=== PATIENT | female | born 1950 | race African-American/Black ===

== ENCOUNTER → 2016-12-17 | Outpatient (CLI) | payer MEDICARE, OTHER ==
[2014-04-18 11:50] VITALS: BP 154/70
[~2016-12-17] MED LIST: ACET325T9 PO; ASCO10002 PO; ASPI81TA2 PO; BYSTOLIC20 MG PO; CHOL10003 PO; INSU100V13 SQ; LATA2.5D3 OU; METO100T2 PO; METO50TA2 PO; MULT-18 PO; SALM1CAP2 PO; SENN-6 PO; TAPE100T3 PO; VALS80TA3 PO; ZOLP5TAB5 PO
--- NOTE | 2016-12-17 12:32 | RAD ---
DATE: 12/17/2016 EXAM: DIGITAL SCREEN BILAT W/CAD HISTORY: Routine screening COMPARISON: 12/17/2015 This study was interpreted with the benefit of Computerized Aided Detection (CAD). FINDINGS: The fibroglandular pattern in the breasts is heterogeneously dense. No new or enlarging breast densities are seen. Benign type calcifications are present. No suspicious microcalcifications have developed. IMPRESSION: Stable mammograms without evidence of malignancy. BI-RADS CATEGORY: 2 BENIGN FINDING(S) RECOMMENDED FOLLOW-UP: 12M 12 MONTH FOLLOW-UP PQRS compliance statement: Patient information was entered into a reminder system with a target due date for the next mammogram. Mammography is a sensitive method for finding small breast cancers, but it does not detect them all and is not a substitute for careful clinical examination. A negative mammogram does not negate a clinically suspicious finding and should not result in delay in biopsying a clinically suspicious abnormality. "Our facility is accredited by the [employer] Mammography [employer]."
== END | disposition home or self-care (01) ==
LOC: MAMMO 11:52
PROVIDERS: ATTEND Family Medicine
DX: Z12.31 Encounter for screening mammogram for malignant neoplasm of breast (principal)
CPT/HCPCS: G0202; 77067

== ENCOUNTER → 2017-06-16 | Outpatient (CLI) | payer MEDICARE, OTHER ==
[2014-04-18 11:50] VITALS: BP 154/70
[~2017-06-16] MED LIST changes: +ASPI-630 PO; -ASPI81TA2 PO; -TAPE100T3 PO; +TAPE100T7 PO
--- NOTE | 2017-06-16 11:45 | RAD ---
EXAM: Carotid Doppler sonogram. HISTORY: Carotid bruit, hypertension, diabetes. TECHNIQUE: Ventura scale and color Doppler sonographic evaluation of the neck with spectral waveform analysis was performed and static images are submitted for review. FINDINGS: RIGHT: The peak systolic velocity within the common carotid artery is 85 cm/sec. The peak systolic velocity within the internal carotid artery is 60 cm/sec and the end diastolic velocity within the internal carotid artery is 16 cm/sec. The ICA/CCA ratio is 1.27. Grayscale images demonstrate no significant plaquing. LEFT: The peak systolic velocity within the common carotid artery is 73 cm/sec. The peak systolic velocity within the internal carotid artery is 83 cm/sec and the end diastolic velocity within the internal carotid artery is 24 cm/sec. The ICA/CCA ratio is 1.53. Grayscale images demonstrate no significant plaquing. There is antegrade flow within both vertebral arteries. IMPRESSION: 1. No evidence of hemodynamically significant stenosis. PQRS Compliance Statement - Stenosis calculations for CT, MR and conventional angiography are based upon measurement of the distal ICA diameter in accordance with the NASCET methodology. Stenosis calculations for carotid ultrasound studies are derived from validated velocity criteria which are known to correlate with the NASCET methodology.
--- NOTE | 2017-06-16 16:11 | RAD ---
2 views of the Chest 06/16/2017 2:00 AM Indication: HYPERTENSION. BRUIT. DM II. Comparison: Chest radiograph September 04, 2010 Findings: No pneumothorax or pleural effusion is identified. Heart size is normal. Aortic calcification is grossly stable. No new focal infiltrate is identified. No acute osseous changes are seen. Impression: No evidence of acute cardiopulmonary process
--- NOTE | 2017-06-19 12:12 | CARD ---
APPROVED REPORT EXAM: Two-dimensional and M-mode echocardiogram with Doppler and color Doppler. Other Information Quality : Average Rhythm : NSR INDICATION Hypertension/HCVD LV Function:Diastolic 2D DIMENSIONS RVDd2.3 (2.9-3.5cm)Left Atrium(2D)2.9 (1.6-4.0cm) IVSd1.2 (0.7-1.1cm)Aortic Root(2D)2.5 (2.0-3.7cm) LVDd4.1 (3.9-5.9cm)LVOT Diameter2.0 (1.8-2.4cm) PWd1.2 (0.7-1.1cm)LVDs2.3 (2.5-4.0cm) FS (%) 32.9 %SV54.1 ml LVEF(%)64.5 (>50%) Aortic Valve AoV Peak Wu.99.6cm/sAoV VTI21.5cm AO Peak GR.4.0mmHgLVOT Peak Wu.87.4cm/s LVOT VTI 19.49cmAO Mean GR.2mmHg SOLA (VMAX)2.76dq6EIP (VTI)2.82cm2 Mitral Valve MV E Xhxrtqly60.9cm/sMV DECEL ZGVC477up MV A Skgtwgfu08.8cm/sMV ASI51lx E/A Ratio1.2MV A Ejilggpw764kq MVA (PHT)4.16cm2 TDI E/Lateral E'8.0E/Medial E'6.4 Pulmonary Valve PV Peak Kpkfiexb37.3cm/sPV Peak Grad.1mmHg RVOT VTI17.5cm Tricuspid Valve TR P. Ghagafsk279vc/sRAP NDLHUSYZ9kyKa TR Peak Gr.87zbNfLWBW38vhLv Pulmonary Vein S1 Ayhkbfnk54.5cm/sD2 Dhnogebm25.5cm/s LEFT VENTRICLE The left ventricle is normal size. There is borderline concentric left ventricular hypertrophy. Left ventricle systolic function is normal. The Ejection Fraction is 60-65%. There is normal LV segmental wall motion. The left ventricular diastolic function and filling is normal. There is no ventricular s eptal defect visualized. RIGHT VENTRICLE The right ventricle is normal size. The right ventricular systolic function is normal. ATRIA The left atrium size is normal. The right atrium size is normal. The interatrial septum is intact wit h no evidence for an atrial septal defect or patent foramen ovale as noted on 2-D or Doppler imaging. AORTIC VALVE The aortic valve is normal in structure and function. The aortic valve is trileaflet. Doppler and Col or Flow revealed no significant aortic regurgitation. There is no significant aortic valvular stenosi s. MITRAL VALVE The mitral valve is normal in structure and function. There is no mitral valve stenosis. Doppler and Color Flow revealed trace to mild mitral regurgitation. TRICUSPID VALVE The tricuspid valve is normal in structure and function. Doppler and Color Flow revealed mild tricusp id regurgitation. The PA pressure was estimated at 24 mmHg. There is no tricuspid valve stenosis. PULMONIC VALVE The pulmonic valve is not well visualized. Doppler and Color Flow revealed trace pulmonic valvular re gurgitation. There is no pulmonic valvular stenosis. GREAT VESSELS The aortic root is normal in size. Normal pulmonary venous flow (Doppler). The IVC is normal in size and collapses >50% with inspiration. PERICARDIAL EFFUSION There is no evidence of significant pericardial effusion. Critical Notification Critical Value: No <Conclusion> The left ventricle is normal size. There is borderline concentric left ventricular hypertrophy. Left ventricle systolic function is normal. The Ejection Fraction is 60-65%. The left ventricular diastolic function and filling is normal. There is no evidence of significant pericardial effusion. There is no mitral stenosis and a mild mitral regurgitation. Left atrium is of a normal size. There is no aortic stenosis or regurgitation. Right ventricle is of a normal size with normal systolic function. There is a mild tricuspid regurgitation. Flow velocity across the tricuspid valve gives an estimated right ventricular systolic pressure of 27 mmHg. There is thus no pulmonary hypertension. There is a trace pulmonic regurgitation.
== END | disposition home or self-care (01) ==
LOC: RAD 09:23
PROVIDERS: ATTEND Family Medicine
DX: I10 Essential (primary) hypertension (principal); E11.9 Type 2 diabetes mellitus without complications; I70.0 Atherosclerosis of aorta; I07.1 Rheumatic tricuspid insufficiency; R09.89 Other specified symptoms and signs involving the circulatory and respiratory systems
CPT/HCPCS: 71020; 93306; 93880

== ENCOUNTER → 2017-12-20 | Outpatient (CLI) | payer MEDICARE, OTHER | END | disposition home or self-care (01) | LOC: MAMMO 08:35 | DX: Z12.31 Encounter for screening mammogram for malignant neoplasm of breast (principal); I10 Essential (primary) hypertension; E11.9 Type 2 diabetes mellitus without complications; E78.5 Hyperlipidemia, unspecified | CPT/HCPCS: 77063; 77067 ==

== ENCOUNTER → 2017-12-27 | Outpatient (CLI) | payer MEDICARE, OTHER | END | disposition home or self-care (01) | LOC: US 10:57 | DX: N63.11 Unspecified lump in the right breast, upper outer quadrant (principal); E11.22 Type 2 diabetes mellitus with diabetic chronic kidney disease; E78.5 Hyperlipidemia, unspecified | CPT/HCPCS: 76641 ==

== ENCOUNTER 2018-01-31 09:18 | Day surgery (SDC) | payer MEDICARE, OTHER ==
[~2018-01-31 09:18] MED LIST changes: -ACET325T9 PO; -ASCO10002 PO; -ASPI-630 PO; -BYSTOLIC20 MG PO; -CHOL10003 PO; -INSU100V13 SQ; -LATA2.5D3 OU; +LIDOCAINE 1% PF 2 ML VIAL. ID; +LIDOCAINE 1% PF 30 ML VIAL. INJ; +METHYLENE BLUE 1% 10 ML VIAL.; +METHYLENE BLUE 1% 10 ML VIAL. IJ; -METO100T2 PO; -METO50TA2 PO; +MORPHINE SULFATE 4 MG/ML DISP.SYRIN. IV; -MULT-18 PO; +ONDANSETRON PF 4 MG/2 ML VIAL. IV; -SALM1CAP2 PO; -SENN-6 PO; -TAPE100T7 PO; -VALS80TA3 PO; -ZOLP5TAB5 PO; +fentaNYL PF VIAL 100 MCG/2 ML VIAL IV
[2018-01-31 10:20] LABS: POC GLUCOSE 100 mg/dL (70-99)
[2018-01-31 10:24] LABS: ADD MAN DIFF? NO
[2018-01-31 10:38] LABS: ANION GAP 12 (6-14); BLOOD UREA NITROGEN 22 mg/dL (7-20); BUN/CREATININE RATIO 16 (6-20); CARBON DIOXIDE 25 mmol/L (21-32); CHLORIDE 106 mmol/L (98-107); CREATININE 1.4 mg/dL (0.6-1.0); GFR 45.5; GLUCOSE 114 mg/dL (70-99); POTASSIUM 4.3 mmol/L (3.5-5.1); PROTHROMBIN TIME PATIENT 12.7 SEC (11.7-14.0); SODIUM 143 mmol/L (136-145)
[2018-01-31 10:43] LABS: ALBUMIN 3.5 g/dL (3.4-5.0); ALBUMIN/GLOBULIN RATIO 0.9 (1.0-1.7); ALK PHOS 82 U/L (46-116); ALT (SGPT) 37 U/L (14-59); AST (SGOT) 23 U/L (15-37); TOTAL BILIRUBIN 0.5 mg/dL (0.2-1.0); TOTAL PROTEIN 7.6 g/dL (6.4-8.2)
[2018-01-31] MEDS ORDERED: DEXAMETHASONE SOD PHOS 20 MG/5 ML VIAL. (10:46)
[2018-01-31] MEDS ORDERED: PROPOFOL 20 ML IV (10:46)
[2018-01-31] MEDS ORDERED: ePHEDrine PF IN SALINE 50 MG/5 ML DISP.SYRIN IV (10:46)
[2018-01-31] MEDS ORDERED: ONDANSETRON PF 4 MG/2 ML VIAL. (10:46)
[2018-01-31] MEDS ORDERED: LIDOCAINE 2% PF Vial for OR 5 ML VIAL. (10:46)
[2018-01-31 10:47] LABS: BASO % 0 % (0-3); EOS % 0 % (0-3); HEMATOCRIT 37.9 % (36.0-47.0); HEMOGLOBIN 12.6 g/dL (12.0-15.5); LYMPH % 17 % (24-48); MEAN CORPUSCULAR HEMOGLOBIN 27 pg (25-35); MEAN CORPUSCULAR HGB CONC 33 g/dL (31-37); MEAN CORPUSCULAR VOLUME 82 fL (79-100); MONO # 0.7 x10^3/uL (0.0-1.1); MONO % 11 % (0-9); NEUT # 4.3 x10^3uL (1.8-7.7); NEUT % 71 % (31-73); PLATELET COUNT 177 x10^3/uL (140-400); RED BLOOD COUNT 4.63 x10^6/uL (3.50-5.40); RED CELL DISTRIBUTION WIDTH 13.6 % (11.5-14.5)
[2018-01-31] MEDS ORDERED: fentaNYL PF VIAL 100 MCG/2 ML VIAL (10:48)
[2018-01-31] MEDS ORDERED: ROCURONIUM 50 MG/5 ML VIAL. (11:52)
[2018-01-31] MEDS ORDERED: SUCCINYLCHOLINE 200 MG/10 ML VIAL. (11:52)
[2018-01-31] MEDS: IV RINGERS,LACTATED 1000ML 1,000 ML IV (12:00)
[2018-01-31] MEDS ORDERED: CLINDAMYCIN 900MG PREMIX 50 ML IV (12:30)
[2018-01-31] MEDS: CLINDAMYCIN 900MG PREMIX 50 ML IV (12:53)
[2018-01-31] MEDS ORDERED: GLYCOPYRROLATE 1 MG/5 ML VIAL. (13:09)
[2018-01-31] MEDS ORDERED: NEOSTIGMINE METHYLSULFATE 5 MG/5 ML SYRINGE. (13:09)
[2018-01-31 14:02] LABS: POC GLUCOSE 82 mg/dL (70-99)
[2018-01-31] MEDS: fentaNYL PF VIAL 100 MCG/2 ML VIAL IV ×2 (14:06→14:22)
[2018-01-31] MEDS: hydrALAZINE 20 MG/ML VIAL. IVP (14:21)
[2018-01-31] MEDS: PROCHLORPERAZINE 10 MG/2 ML VIAL. IV (14:22)
[2018-01-31] MEDS: oxyCODONE/APAP 5/325 1 TAB TABLET PO (15:01)
== END 2018-01-31 15:42 | disposition home or self-care (01) ==
LOC: SURG 09:18
DX: N60.31 Fibrosclerosis of right breast (principal); N60.41 Mammary duct ectasia of right breast; N60.81 Other benign mammary dysplasias of right breast; N60.91 Unspecified benign mammary dysplasia of right breast; I10 Essential (primary) hypertension; E11.39 Type 2 diabetes mellitus with other diabetic ophthalmic complication; H40.9 Unspecified glaucoma; Z88.0 Allergy status to penicillin; Z79.82 Long term (current) use of aspirin; Z88.1 Allergy status to other antibiotic agents; Z88.8 Allergy status to other drugs, medicaments and biological substances; Z79.01 Long term (current) use of anticoagulants
CPT/HCPCS: 19083; 36415; 76098; 76942; 80053; 82962; 85025; 85610; 88305; A7015; J0330; J0360; J0690; J0780; J1100; J2405; J2704; J2710; J3010; J3490; Q9968

== ENCOUNTER → 2018-04-18 | Outpatient (CLI) | payer MEDICARE, OTHER ==
[2018-01-31 15:08] VITALS: BP 166/67
[~2018-04-18] MED LIST changes: +ACET325T9 PO; +ACET500T33 PO; +ASCO10002 PO; +ASPI-630 PO; +BYSTOLIC20 MG PO; +CHOL10003 PO; +CHOL500016 PO; +HYDR4TAB PO; +INSU100V11 IJ; +INSU100V13 SQ; +LACT1CAP56 PO; +LATA2.5D3 OU; -LIDOCAINE 1% PF 2 ML VIAL. ID; -LIDOCAINE 1% PF 30 ML VIAL. INJ; -METHYLENE BLUE 1% 10 ML VIAL.; -METHYLENE BLUE 1% 10 ML VIAL. IJ; +METO100T7 PO; +METO50TA6 PO; -MORPHINE SULFATE 4 MG/ML DISP.SYRIN. IV; +MULT-18 PO; +OMEG1CAP38 PO; -ONDANSETRON PF 4 MG/2 ML VIAL. IV; +OXYC-323 PO; +SALM1CAP2 PO; +SENN-82 PO; +SENN17.24 PO; +SIMV10TA3 PO; +TAPE100T7 PO; +VALS160T3 PO; +VALS80TA3 PO; +ZOLP5TAB5 PO; -fentaNYL PF VIAL 100 MCG/2 ML VIAL IV
--- NOTE | 2018-04-18 13:14 | KCIC ---
EXAM: Renal sonogram. HISTORY: Renal mass. TECHNIQUE: Sonographic imaging of the kidneys and bladder was performed. COMPARISON: 11/27/2015. FINDINGS: The exam is limited due to body habitus and bowel gas. The right kidney measures 9.2 cm sivu-ww-qoqu. The left kidney measures 9.1 cm pqki-xd-gbzi. There is a circumscribed echogenic lesion within the lateral mid zone of the left kidney measuring 2.5 x 2.1 x 2.0 cm in maximum dimension. There is a similar less conspicuous region of lobulation along the mid zone of the right kidney, the latter which may be due to cortical scarring. There is no hydronephrosis. The bladder is unremarkable. IMPRESSION: 2.5 cm echogenic lesion within the lateral mid zone of the left kidney. 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 However, the possibility of an alternative neoplasm is not excluded. There is also less conspicuous lobulation along the lateral mid zone of the right kidney which may be due to scarring. Given limitations of this exam due to body habitus and bowel gas, a renal protocol CT or MRI is recommended for characterization. Electronically signed by: An Pacheco MD (04/18/2018 1:11 PM) [id number]
== END | disposition home or self-care (01) ==
LOC: KCIC US 09:43
DX: N28.9 Disorder of kidney and ureter, unspecified (principal); I10 Essential (primary) hypertension; E11.9 Type 2 diabetes mellitus without complications; E78.5 Hyperlipidemia, unspecified; M19.90 Unspecified osteoarthritis, unspecified site; Z88.0 Allergy status to penicillin; Z88.1 Allergy status to other antibiotic agents; Z88.8 Allergy status to other drugs, medicaments and biological substances; Z79.82 Long term (current) use of aspirin; Z79.01 Long term (current) use of anticoagulants
CPT/HCPCS: 76770

== ENCOUNTER 2018-06-13 06:26 | Emergency (ER) | payer MEDICARE ==
[~2018-06-13] VITALS: Ht 154.9 cm; Wt 80.7 kg
--- NOTE | 2018-06-13 06:44 | PHYS DOC ---
Adult General Chief Complaint Chief Complaint: BLOOD SUGAR PROBLEM HPI HPI Patient is a 67 year old female who presents with accidental ingestion of short -acting insulin. She was supposed to take 45 units of Levemir but she accidentally took 45 units of short-acting NovoLog currently she feels a little shaky but has been drinking milk. Review of Systems Review of Systems Constitutional: Denies fever or chills [] Eyes: Denies change in visual acuity, redness, or eye pain [] HENT: Denies nasal congestion or sore throat [] Respiratory: Denies cough or shortness of breath [] Cardiovascular: No additional information not addressed in HPI [] GI: Denies abdominal pain, nausea, vomiting, bloody stools or diarrhea [] : Denies dysuria or hematuria [] Musculoskeletal: Denies back pain or joint pain [] Integument: Denies rash or skin lesions [] Neurologic: Denies headache, focal weakness or sensory changes [] Endocrine: Denies polyuria or polydipsia [] All other systems were reviewed and found to be within normal limits, except as documented in this note. Allergies Allergies Allergies Coded Allergies Type Severity Reaction Last Updated Verified Penicillins Allergy Intermediate Rash 01/27/18 Yes Sulfa (Sulfonamide Antibiotics) Allergy Intermediate Rash 01/27/18 Yes sulfamethoxazole Allergy Intermediate Rash 01/27/18 Yes trimethoprim Allergy Intermediate Rash 01/27/18 Yes tuberculin, purified protein deriva Allergy Intermediate 01/31/18 No glycerin Allergy Unknown 01/27/18 Yes nickel Allergy Unknown 01/27/18 Yes Physical Exam Physical Exam Constitutional: Well developed, well nourished, no acute distress, non-toxic appearance. [] HENT: Normocephalic, atraumatic, bilateral external ears normal, oropharynx moist, , nose normal. [] Eyes: PERRLA, EOMI, conjunctiva normal, no discharge. [] Neck: Normal range of motion, no tenderness, supple, no stridor. [] Pulmonary: Normal respiratory effort no increased work of breathing no obvious chest wall trauma Skin: Warm, dry, no erythema, no rash. [] Extremities: No tenderness, no cyanosis, no clubbing, ROM intact, no edema. [] Neurologic: Alert and oriented X 3, normal motor function, normal sensory function, no focal deficits noted. [] Psychologic: Affect normal, judgement normal, mood normal. [] Current Patient Data Vital Signs Vital Signs Date Time Temp Pulse Resp B/P (MAP) Pulse Ox O2 Delivery O2 Flow Rate FiO2 06/13/18 07:31 66 18 152/81 (104) 98 Room Air 06/13/18 06:28 97.6 97.6 Lab Values Laboratory Tests Test 06/13/18 06:33 Glucose (Fingerstick) 125 mg/dL (70-99) H EKG EKG [] Radiology/Procedures Radiology/Procedures [] Course & Med Decision Making Course & Med Decision Making Pertinent Labs and Imaging studies reviewed. (See chart for details) 67-year-old female presenting with accidental ingestion of short-acting insulin. It should be within one to 4 hours at the most. Currently patient is asymptomatic blood sugars 125 at this point in time we'll give her a meal with protein at complex carbohydrates and recheck blood sugar 1 hour. repeat bg 126. pt stable feels fine will d/c. Dragon Disclaimer Dragon Disclaimer This electronic medical record was generated, in whole or in part, using a voice recognition dictation system. Departure Departure Impression: Primary Impression: Accidental drug ingestion Additional Impression: Elevated blood pressure reading Disposition: HOME, SELF-CARE Condition: STABLE Referrals: CAMRON DWYER MD (PCP) Problem Qualifiers ELLIOT GUTIERRES MD Jun 13, 2018 06:43
[2018-06-13 07:31] VITALS: BP 152/81
== END 2018-06-13 07:37 | disposition home or self-care (01) ==
LOC: ER 06:26
DX: T38.3X1A Poisoning by insulin and oral hypoglycemic [antidiabetic] drugs, accidental (unintentional), initial encounter (principal); I10 Essential (primary) hypertension; Z88.0 Allergy status to penicillin; Z88.2 Allergy status to sulfonamides; Z88.8 Allergy status to other drugs, medicaments and biological substances; Y92.89 Other specified places as the place of occurrence of the external cause
CPT/HCPCS: 82962; 99282

== ENCOUNTER → 2018-10-31 | Outpatient (CLI) | payer MEDICARE, OTHER ==
[~2018-10-31] MED LIST changes: -OXYC-323 PO; +OXYC1TAB15 PO
--- NOTE | 2018-10-31 08:51 | KCIC ---
EXAM: PA and Lateral Views of the Chest DATE: 10/31/2018 9:00 AM INDICATION: COMPARISON: No Prior FINDINGS: The heart is not enlarged. Mediastinal and hilar contours are stable. Aortic calcifications are seen. No focal parenchymal airspace opacity. No cavitary lung lesions are seen. No pleural effusion or pneumothorax. IMPRESSION: 1. No radiographic evidence for acute cardiopulmonary process. Electronically signed by: Dale Núñez MD (10/31/2018 8:48 AM) [facility]
--- NOTE | 2018-10-31 15:41 | KCIC ---
Bone densitometry 10/31/2018 8:30 AM Indication: Postmenopausal screening exam Comparison Study: Bone densitometry September 19, 2013 Discussion: Bone Densitometry was performed with dual photon absorption of the lumbar spine and proximal femur. Lumbar Spine: Average bone mineral density is 1.013. g/cm2 for L1-L4. T-Score is -0.3. Prior T score -0.2. Left femoral neck: Bone average density is 0.826g/cm2. T-Score is -1.0. Prior T score -0.9 IMPRESSION: Bone mineral density is within normal range. Note that bone mineral density of the left femoral neck is at the lower limits of normal, similar to prior study. Note: Definitions established by the World Health Organization: Normal: T-score is -1.0 or above. Osteopenia: T-score is between -1.0 and -2.5. Osteoporosis: T-score is -2.5 or below. Electronically signed by: Kedar Powers MD (10/31/2018 3:37 PM) [id number]
== END | disposition home or self-care (01) ==
LOC: KCIC DEXA 07:21
PROVIDERS: ATTEND Family Medicine
DX: Z13.820 Encounter for screening for osteoporosis (principal); I70.0 Atherosclerosis of aorta; E11.9 Type 2 diabetes mellitus without complications; R76.11 Nonspecific reaction to tuberculin skin test without active tuberculosis; Z78.0 Asymptomatic menopausal state
CPT/HCPCS: 71046; 77080

== ENCOUNTER → 2018-11-14 | Outpatient (CLI) | payer MEDICARE, OTHER ==
--- NOTE | 2018-11-14 12:21 | CARD ---
MR#: [id number] Date of Study: 11/14/2018 Ordering Physician: CAMRON ALBA, Referring Physician: CAMRON ALBA, Tech: Antonella Busch APPROVED REPORT EXAM: Two-dimensional and M-mode echocardiogram with Doppler and color Doppler. Other Information Quality : AverageHR: 57bpm Rhythm : NSR INDICATION Hypertension/HCVD RISK FACTORS Hyperlipidemia Diabetes 2D DIMENSIONS RVDd2.4 (2.9-3.5cm)Left Atrium(2D)3.1 (1.6-4.0cm) IVSd1.1 (0.7-1.1cm)Aortic Root(2D)2.6 (2.0-3.7cm) LVDd4.2 (3.9-5.9cm)LVOT Diameter2.0 (1.8-2.4cm) PWd1.0 (0.7-1.1cm)LVDs2.3 (2.5-4.0cm) FS (%) 45.7 %SV61.7 ml LVEF(%)77.4 (>50%) Aortic Valve AoV Peak Wu.123.0cm/sAoV VTI29.8cm AO Peak GR.6.1mmHgLVOT Peak Wu.110.7cm/s LVOT VTI 27.26cmAO Mean GR.3mmHg SOLA (VMAX)2.12ve7IIB (VTI)2.88cm2 Mitral Valve MV E Oenegtit16.7cm/sMV DECEL OGVU747gj MV A Uhrdlfig50.5cm/sMV ERK82nl E/A Ratio0.8MVA (PHT)3.71cm2 TDI E/Lateral E'8.0E/Medial E'5.1 Pulmonary Valve PV Peak Szqnwsuk84.0cm/sPV Peak Grad.3mmHg Tricuspid Valve TR P. Mkfclosm946cl/sRAP XPGSYQEL0pzAy TR Peak Gr.36qtIsRQLM03okXp Pulmonary Vein S1 Lzcdnxuu64.5cm/sD2 Xwfpyvoh53.7cm/s PVa mmwdtski925hhnp LEFT VENTRICLE The left ventricle is normal size. There is normal left ventricular wall thickness. The left ventricu lar systolic function is normal and the ejection fraction is within normal range. The Ejection Fracti on is >55%. There is normal LV segmental wall motion. Transmitral Doppler flow pattern is Grade I-abn ormal relaxation pattern. RIGHT VENTRICLE The right ventricle is normal size. There is normal right ventricular wall thickness. The right ventr icular systolic function is normal. ATRIA The left atrium size is normal. The right atrium size is normal. The interatrial septum is intact wit h no evidence for an atrial septal defect or patent foramen ovale as noted on 2-D or Doppler imaging. AORTIC VALVE The aortic valve is normal in structure and function. Doppler and Color Flow revealed no significant aortic regurgitation. There is no significant aortic valvular stenosis. MITRAL VALVE The mitral valve is thickened but opens well. There is no evidence of mitral valve prolapse. There is no mitral valve stenosis. Doppler and Color-flow revealed trace mitral regurgitation. TRICUSPID VALVE The tricuspid valve is normal in structure and function. Doppler and Color Flow revealed trace tricus pid regurgitation. There is no tricuspid valve stenosis. PULMONIC VALVE The pulmonary valve is normal in structure and function. Doppler and Color Flow revealed mild pulmoni c valvular regurgitation. There is no pulmonic valvular stenosis. GREAT VESSELS The aortic root is normal in size. The IVC is normal in size and collapses >50% with inspiration. PERICARDIAL EFFUSION There is no evidence of significant pericardial effusion. Critical Notification Critical Value: No <Conclusion> The left ventricular systolic function is normal and the ejection fraction is within normal range. Th e Ejection Fraction is >55%. There is normal LV segmental wall motion. Signed by : Daren Arevalo, Electronically Approved : 11/14/2018 12:20:47
== END | disposition home or self-care (01) ==
LOC: CARD 09:10
PROVIDERS: ATTEND Family Medicine
DX: I37.1 Nonrheumatic pulmonary valve insufficiency (principal); I10 Essential (primary) hypertension; E11.9 Type 2 diabetes mellitus without complications; E78.5 Hyperlipidemia, unspecified
CPT/HCPCS: 93306

== ENCOUNTER → 2018-12-26 | Outpatient (CLI) | payer MEDICARE, OTHER ==
--- NOTE | 2018-12-26 09:23 | RAD ---
DATE: 12/26/2018 EXAM: MAMMO DANELLE SCREENING BILATERAL HISTORY: Routine screening COMPARISON: 12/20/2017 This study was interpreted with the benefit of Computerized Aided Detection (CAD). Breast Density: HETERO The breast parenchyma is heterogenously dense, which could reduce sensitivity of mammography. Breast parenchyma level C. FINDINGS: 2-D and 3-D tomosynthesis imaging was performed in CC and MLO projections. No new or enlarging breast densities are seen. Benign type calcifications are again noted. No suspicious microcalcifications have developed. IMPRESSION: There is no mammographic evidence of malignancy in either breast. BI-RADS CATEGORY: 2 BENIGN FINDING(S) RECOMMENDED FOLLOW-UP: 12M 12 MONTH FOLLOW-UP PQRS compliance statement: Patient information was entered into a reminder system with a target due date for the next mammogram. Mammography is a sensitive method for finding small breast cancers, but it does not detect them all and is not a substitute for careful clinical examination. A negative mammogram does not negate a clinically suspicious finding and should not result in delay in biopsying a clinically suspicious abnormality. "Our facility is accredited by the [employer] Mammography Program."
== END | disposition home or self-care (01) ==
LOC: MAMMO 07:46
PROVIDERS: ATTEND Family Medicine
DX: Z12.31 Encounter for screening mammogram for malignant neoplasm of breast (principal); N64.89 Other specified disorders of breast
CPT/HCPCS: 77063; 77067

== ENCOUNTER → 2019-06-06 | Outpatient (CLI) | payer MEDICARE, OTHER ==
--- NOTE | 2019-06-06 10:36 | RAD ---
EXAM: AP views both knees DATE: 06/06/2019 12:00 AM INDICATION: Bilateral knee joint pain COMPARISON: Radiographs 08/14/2015 FINDINGS/ IMPRESSION: 1. Moderate medial compartment joint space narrowing bilaterally with medial and lateral compartment osteophytes. 2. No acute fracture or dislocation. Mild deformity proximal right fibula likely old/healed fracture. 3. Nodular calcifications within the mid-distal shaft of both femurs, seen on prior examination 08/14/2015, likely low-grade cartilaginous lesion such as enchondroma although medullary bone infarct would have similar appearance. Electronically signed by: Dale Núñez MD (06/06/2019 10:33 AM) [facility]
== END | disposition home or self-care (01) ==
LOC: RAD 08:23
PROVIDERS: ATTEND Physical Medicine & Rehabilitation
DX: M25.762 Osteophyte, left knee (principal); M25.761 Osteophyte, right knee; M25.862 Other specified joint disorders, left knee; M25.861 Other specified joint disorders, right knee
CPT/HCPCS: 73565

== ENCOUNTER → 2020-01-02 | Outpatient (CLI) | payer MEDICARE, OTHER ==
[~2020-01-02] MED LIST changes: +SIMV10TA15 PO; -SIMV10TA3 PO
--- NOTE | 2020-01-02 16:39 | RAD ---
History: Routine screening. Technique: Bilateral digital mammographic routine views were obtained with 2-D and 3-D technique, including CAD - computer aided detection. Comparison: 12/26/2018, 12/20/2017. Findings: Breast Tissue Density B :The breast tissue is composed of mixed fatty and fibroglandular tissue. There are no suspicious masses, microcalcifications or areas of architectural distortion. Impression: Negative mammogram. BI-RADS Category 1: Negative. Normal interval followup. A mammogram does not have 100% sensitivity and therefore a negative imaging study should not delay further work up of a suspicious abnormality. The patient will receive a letter with the results in the mail. Patient information is entered into the reminder system with a target due date for the next screening mammogram. The patient will receive a reminder. "Our facility is accredited by the [employer] Mammography Program." BI-RADS 1 -- negative findings (within normal)
== END | disposition home or self-care (01) ==
LOC: MAMMO 08:05
PROVIDERS: ATTEND Family Medicine
DX: Z12.31 Encounter for screening mammogram for malignant neoplasm of breast (principal)
CPT/HCPCS: 77063; 77067

== ENCOUNTER → 2021-01-07 | Outpatient (CLI) | payer MEDICARE, OTHER ==
[~2021-01-07] MED LIST changes: +ASCO100019 PO; -ASCO10002 PO
--- NOTE | 2021-01-07 12:51 | RAD ---
DATE: January 07, 2021 EXAM: MAMMO DANELLE SCREENING BILATERAL HISTORY: Screening study. COMPARISON: 2018 and 2019 This study was interpreted with the benefit of Computerized Aided Detection (CAD). FINDINGS: Breast Density: HETERO The breast parenchyma is heterogenously dense, which could reduce sensitivity of mammography. Breast parenchyma level C. There is a new group of nodules seen laterally within the anterior aspect of the left breast at about the 3:00 position. This is seen in the CC projection. Recommend left breast sonography. Right breast is stable. IMPRESSION: Nodules of the anterior lateral aspect of the left breast. Left breast sonography is recommended. BI-RADS CATEGORY: 0 INCOMPLETE: NEEDS ADDITIONAL IMAGING EVALUATION AND/OR PRIOR MAMMOGRAMS FOR COMPARISON. RECOMMENDED FOLLOW-UP: ADD ADDITIONAL IMAGING PQRS compliance statement: Patient information was entered into a reminder system with a target due date now for the next imaging study. Mammography is a sensitive method for finding small breast cancers, but it does not detect them all and is not a substitute for careful clinical examination. A negative mammogram does not negate a clinically suspicious finding and should not result in delay in biopsying a clinically suspicious abnormality. "Our facility is accredited by the [employer] Mammography Program." The patient's breast density may affect the ability of mammography to detect breast cancer. There are 4 categories of breast density, A, B, C and D. Breast density A means that most of the breast tissue is replaced with adipose tissue and therefore is not dense. Breast density B means that the breast tissue is mildly dense and scattered. Breast density C means that the breast tissue is heterogeneously dense. Breast density D means that the breast tissue is very dense. Breast densities especially C and D may decrease the sensitivity of mammography to detect breast cancer. Therefore, the patient may benefit from 3-D breast mammography (3D breast tomography) as a part of their screening mammogram. Insurance may or may not pay for this additional imaging. The patient's breast density based on today's mammogram is category C.
== END ==
LOC: MAMMO 09:26
PROVIDERS: ATTEND Family Medicine
DX: Z12.31 Encounter for screening mammogram for malignant neoplasm of breast (principal)
CPT/HCPCS: 77063; 77067

== ENCOUNTER → 2021-01-21 | Outpatient (CLI) | payer MEDICARE ==
--- NOTE | 2021-01-21 08:07 | RAD ---
EXAM: Left breast sonogram. HISTORY: 70-year-old female presents for evaluation of nodularity within the left breast demonstrated on a screening mammogram dated 01/07/2021. TECHNIQUE: Sonographic imaging of the left breast targeted to sites of mammographic nodularity was pe rformed. COMPARISON: 01/07/2021. FINDINGS: There are small benign cysts with suspected internal debris within the 3:00 position 2 cm f rom the nipple measuring 6 mm, 6 mm and 9 mm. These likely account for areas of mammographic nodulari ty on the recent screening mammogram. No suspicious sonographic lesion is seen. IMPRESSION: 1. Subcentimeter benign cysts within the anterior 3:00 position of the left breast, likely accounting for the findings of concern on the recent screening mammogram. There is no suspicious sonographic fi nding. 2. BI-RADS Category 2: Benign finding(s). Annual mammography is recommended. Electronically signed by: An Pacheco MD (01/21/2021 8:05 AM) [id number]
== END ==
LOC: US 07:57
PROVIDERS: ATTEND Family Medicine
DX: N60.02 Solitary cyst of left breast (principal)
CPT/HCPCS: 76641

== ENCOUNTER 2021-04-16 15:46 | Emergency (ER) | payer MEDICARE ==
[~2021-04-16] VITALS: Ht 157.5 cm; Wt 76.4 kg
--- NOTE | 2021-04-16 16:48 | RAD ---
4 views of left knee dated 04/16/2021. No comparison available. Clinical data indication: Pain. FINDINGS: 4 views of left knee show moderate tricompartmental hypertrophic change with prominent marginal osteo phytes. Thinning and surface irregularity of the articular cartilage throughout. No apparent joint ef fusion or loose body. Mild soft tissue swelling. IMPRESSION: 1. No acute bony abnormality. 2. Moderate tricompartmental DJD. Electronically signed by: Maxime Encinas MD (04/16/2021 4:46 PM) [facility]
[2021-04-16] MEDS ORDERED: oxyCODONE IR 5 MG TABLET PO ONE (17:00)
--- NOTE | 2021-04-16 17:35 | PHYS DOC ---
Past Medical History Past Medical History: Arthritis, Diabetes-Type II, High Cholesterol, Hype rtension, Other Additional Past Medical Histor: stage III renal disease, OA Past Surgical History: Appendectomy, , Tonsillectomy, Other Additional Past Surgical Histo: rt breast cyst rem, rt carpal tunnel, lt breast cyst rem, hemorroidectomy, Smoking Status: Never Smoker Alcohol Use: None Drug Use: None General Adult EDM: Chief Complaint: KNEE SWELLING HPI: HPI: Patient is a 70-year-old female with a history of diabetes type 2, hypertension, high cholesterol, arthritis, who presents to the ED today complaining of 9 out of 10 throbbing left knee pain intermittently since Tuesday. Patient states symptoms are worse on weightbearing. She states she has taken Tylenol as well as hydromorphone which she takes for chronic pain with minimal relief. Patient denies any injuries. She reports clicking sound in the knee when walking. Review of Systems: Review of Systems: Constitutional: Denies fever or chills. [] Musculoskeletal: Reports left knee pain Integument: Denies rash. [] Neurologic: Denies headache, focal weakness or sensory changes. [] Psychiatric: Denies depression or anxiety. [] Heart Score: C/O Chest Pain: N/A Risk Factors: Risk Factors: DM, Current or recent (<one month) smoker, HTN, HLP, family history of CAD, obesity. Risk Scores: Score 0 - 3: 2.5% MACE over next 6 weeks - Discharge Home Score 4 - 6: 20.3% MACE over next 6 weeks - Admit for Clinical Observation Score 7 - 10: 72.7% MACE over next 6 weeks - Early Invasive Strategies Current Medications: Current Medications Medications (Trade) Dose Ordered Sig/Catherine Start Time Stop Time Status Last Admin Dose Admin Oxycodone HCl (Roxicodone) 10 mg 1X ONCE 04/16/21 17:00 04/16/21 17:07 DC Allergies: Allergies: Allergies Coded Allergies Type Severity Reaction Last Updated Verified Penicillins Allergy Intermediate Rash 01/27/18 Yes Sulfa (Sulfonamide Antibiotics) Allergy Intermediate Rash 01/27/18 Yes glycerin Allergy Intermediate Unknown 01/02/20 Yes nickel Allergy Intermediate Unknown 01/02/20 Yes sulfamethoxazole Allergy Intermediate Rash 01/27/18 Yes trimethoprim Allergy Intermediate Rash 01/27/18 Yes tuberculin, purified protein deriva Allergy Intermediate Unknown 01/02/20 No Uncoded Allergies Type Severity Reaction Last Updated Verified NSIDS Adverse Reaction Intermediate CHRONIC KIDNEY DISEASE, STAGE 3 04/16/21 Physical Exam: PE: Constitutional: Well developed, well nourished, no acute distress, non-toxic appearance. [] Skin: Warm, dry, no erythema, no rash. [] Back: No tenderness, no CVA tenderness. [] Extremities: Left knee with no obvious deformity. Tenderness diffusely throughout the knee. Full passive as well as active range of motion to the left knee. Negative Verito sign, negative Viktor sign, negative anterior posterior drawer sign. +2 left pedal pulse. Cap refill less than 2 seconds in left lower extremity. Neurologic: Alert and oriented X 3, normal motor function, normal sensory function, no focal deficits noted. [] Psychologic: Affect normal, judgement normal, mood normal. [] Current Patient Data: Vital Signs: Vital Signs Date Time Temp Pulse Resp B/P (MAP) Pulse Ox O2 Delivery O2 Flow Rate FiO2 04/16/21 16:20 98.5 54 16 218/95 (104) 100 Room Air 98.5 EKG: EKG: [] Radiology/Procedures: Radiology/Procedures: []PROCEDURE: KNEE LEFT 4V 4 views of left knee dated 04/16/2021. No comparison available. Clinical data indication: Pain. FINDINGS: 4 views of left knee show moderate tricompartmental hypertrophic change with prominent marginal osteophytes. Thinning and surface irregularity of the articular cartilage throughout. No apparent joint effusion or loose body. Mild soft tissue swelling. IMPRESSION: 1. No acute bony abnormality. 2. Moderate tricompartmental DJD. Electronically signed by: Maxime Encinas MD (04/16/2021 4:46 PM) [facility] [place]CTATED and SIGNED BY: MAXIME ENCINAS MD DATE: 04/16/21 [id number] Course & Med Decision Making: Course & Med Decision Making Pertinent Labs and Imaging studies reviewed. (See chart for details) This is a 70-year-old female patient presenting to the ED today with complaints of left knee pain, symptoms have been going on for 4 days. No known injury. Left knee x-rays interpreted by radiologist and negative for any acute findings, noted for DJD. Provided patient on orthopedic doctor for follow-up. Ice elevation encouraged. Rajat bandage also encouraged. Dragon Disclaimer: Dragon Disclaimer: This electronic medical record was generated, in whole or in part, using a voice recognition dictation system. Departure Departure Impression: Primary Impression: Left knee DJD Qualified Codes: M17.12 - Unilateral primary osteoarthritis, left knee Additional Impression: Left knee pain Qualified Codes: M25.562 - Pain in left knee Disposition: HOME / SELF CARE / HOMELESS Condition: STABLE Referrals: CAMRON DWYER MD (PCP) DEA TAVARES Jr. DO call his office tomorrow and set up a follow up appointment Patient Instructions: Arthritis, Degenerative-Brief Additional Instructions: You were evaluated in the emergency room for left knee pain, your left knee x- rays were negative for any acute findings, you have arthritis in your knee. Please contact the provided orthopedic doctor and follow-up. Try to ice and elevate the extremity. You can use an Rajat bandage to the knee immobilizer as needed. SARAH CASTELLON GENERATOR MAN Apr 16, 2021 17:35
[2021-04-16 17:50] VITALS: BP 203/89
== END 2021-04-16 17:51 | disposition home or self-care (01) ==
LOC: ER 15:46
DX: M17.12 Unilateral primary osteoarthritis, left knee (principal); M25.562 Pain in left knee; G89.29 Other chronic pain; E78.00 Pure hypercholesterolemia, unspecified; E11.22 Type 2 diabetes mellitus with diabetic chronic kidney disease; I12.9 Hypertensive chronic kidney disease with stage 1 through stage 4 chronic kidney disease, or unspecified chronic kidney disease; N18.30 Chronic kidney disease, stage 3 unspecified; Z88.0 Allergy status to penicillin; Z88.2 Allergy status to sulfonamides; Z88.1 Allergy status to other antibiotic agents; Z88.6 Allergy status to analgesic agent; Z88.8 Allergy status to other drugs, medicaments and biological substances
CPT/HCPCS: 73564; 99283

== ENCOUNTER → 2021-05-05 | Outpatient (CLI) | payer MEDICARE ==
[2021-04-16 17:50] VITALS: BP 203/89
--- NOTE | 2021-05-05 10:02 | KCIC ---
Examination: CT left lower extremity, Conformis protocol HISTORY: History of preop planning, left knee pain, arthritis COMPARISON: None available TECHNIQUE: Axial CT images of the left knee. Coronal and sagittal reformats are performed. Axial CT i mages of the left hip and left ankle. Exposure: One or more of the following individualized dose reduction techniques were utilized for thi s examination: 1. Automated exposure control 2. Adjustment of the mA and/or kV according to patient size 3. Use of iterative reconstruction technique FINDINGS: Mild joint space loss left hip joint likely degenerative changes. Serpiginous linear sclerotic distal diaphysis and proximal diaphysis of the tibia of the femur likely old infarct or enchondroma. Severe degenerative changes identified in the medial, lateral, patellofemoral compartments of the knee join t. There is a 1 cm calcification medial to the medial femoral condyle could be soft tissue calcificat ion or loose body. Small knee joint effusion. Mild degenerative changes ankle joint. IMPRESSION: 1. Severe tricompartmental knee degenerative changes. 2. A 1 cm calcification medial to the medial femoral condyle could be soft tissue calcification or lo ose body. Electronically signed by: Andres Cummings MD (05/05/2021 9:59 AM) [id number]
== END ==
LOC: KCIC CT 08:30
PROVIDERS: ATTEND Orthopaedic Surgery
DX: M17.12 Unilateral primary osteoarthritis, left knee (principal); M19.072 Primary osteoarthritis, left ankle and foot; M25.862 Other specified joint disorders, left knee; M25.462 Effusion, left knee
CPT/HCPCS: 73700

== ENCOUNTER → 2021-06-01 | Outpatient (CLI) | payer MEDICARE ==
[~2021-06-01] MED LIST changes: +CYAN50009 PO; +DIPH25CA58 PO; +DOCU100C28 PO; +FERR325T14 PO; +LACT1CAP21 PO; +LOSA-73 PO; +METO-239 PO; +NIFE20CA PO
[2021-06-01 09:30] LABS: PROTHROMBIN TIME PATIENT 12.5 SEC (11.7-14.0)
--- NOTE | 2021-06-01 12:13 | EKG ---
[facility] [address] [place] [address] Test Date: 2021-06-01 Test Time: 12:02:13 Pat Name: PRAMOD BRASHER Department: Room: Gender: F Dyeing Machine Tender: CHRISSY : 1950 Requested By: DEA TAVARES Order Number: [id number] Reading MD: Fernando Vargas Measurements Intervals [place] Rate: 48 P: -51 PA: 138 QRS: 52 QRSD: 90 T: 63 QT: 430 QTc: 387 Interpretive Statements SINUS BRADYCARDIA T ABNORMALITY IN ANTEROLATERAL LEADS ABNORMAL ECG RI6.02 No previous ECG available for comparison Electronically Signed On 06-02-2021 13:24:17 CDT by Fernando Vargas
--- NOTE | 2021-06-01 13:40 | RAD ---
EXAM: Chest, 2 views. HISTORY: Preoperative evaluation. Hypertension. COMPARISON: None. FINDINGS: 2 views of the chest are obtained. There is no infiltrate, pleural effusion or pneumothorax . The heart is normal in size. IMPRESSION: No acute pulmonary finding. Electronically signed by: An Pacheco MD (06/01/2021 1:38 PM) [id number]
== END ==
LOC: SURGPAT 12:35
PROVIDERS: ATTEND Orthopaedic Surgery
DX: Z01.818 Encounter for other preprocedural examination (principal); M17.12 Unilateral primary osteoarthritis, left knee
CPT/HCPCS: 36415; 71046; 82306; 85610; 85651; 85730; 87641; 93005

== ENCOUNTER → 2021-06-11 | Outpatient (CLI) | payer MEDICARE ==
[~2021-06-11] MED LIST changes: +REGADENOSON 0.4 MG/5 ML DISP.SYRIN. IV ONE
--- NOTE | 2021-06-11 16:20 | RAD ---
MR#: [id number] Date of Study: 06/11/2021 Ordering Physician: LEILA LOPES Referring Physician: YAMILETH JENKINS Tech: DOUGIE Mccarty APPROVED REPORT Test Type: Pharmacological Stress Nurse/Tech: ELIO ANDERSEN Test Indications: PRE-OP KNEE SURGERY Cardiac History: SEE EMR Medications: SEE EMR Medical History: SEE EMR Resting ECG: SB Resting Heart Rate: 51 bpm Resting Blood Pressure: 167/70mmHg Pretest Chest Pain: No chest pain Nurse/Tech Notes S1,S2, LUNGS CTA, DENIED CHEST PAIN OR SOA. VSS. Consent: The procedure was explained to the patient in lay terms. Informed consent was witnessed. Rob eout was entered into [employer]. History and Stress Test performed by RT Nimo (R) (N) Pharm. Details Pharmacologic stress testing was performed using 0.4mg per 5ml of regadenoson given intravenously ove r 7-10 seconds. Stress Symptoms ONLY SYMPTOM PT C/O WAS SLIGHT NAUSEA, RESOLVED QUICKLY. VSS, DENIED CHEST PAIN OR SOA, POST EXERCISE Reason for Termination: Infusion complete Max HR: 76 bpm Max Blood Pressure: 172/45mmHg Blood Pressure response to exercise: Normal blood pressure response during stress. Heart Rate response to exercise: WNL Chest Pain: No. ST Change: No. INTERPRETATION Stress EKG Conclusion: Baseline EKG showed sinus rhythm. No ischemic changes at peak stress. No arr hythmias. Imaging Protocol IMAGE PROTOCOL: Rest Tc-99m/stress Tc-99m 1 day Rest: Stress: Viability: Radiopharm.Tc99m FzvttoypaKj92e Sestamibi Fayp29zWr 33mCi Duration 15min. 13min. Img Date 06/11/2021 06/11/2021 Inj-Img Anjq06vli. 60min. Rest Admin Site:IV - Right AntecubitalAdministrator:DOUGIE Mccarty Stress Admin Site: IV - Right AntecubitalAdministrator: RT Nimo (R)(N) STRESS DATA End Diast. Vol.58.0mlLVEDV index BSA33.0ml End Syst. Vol.10.0mlLVESV index BSA5.0ml Myocardial Suks743.0gEject. Gikebght33.0% Stress Scores Regional WT1.00Summed WT7.00 Regional WM0.00Summed WM0.00 Study quality was good. Left Ventricular size was Normal at Rest and Stress. Lung uptake was . Left Ventricular ejection fraction is 83%. The rest and stress images show normal perfusion, normal contraction and thickening. LV Perf. Quant 17 Seg. SSS0.00 17 Seg. SRS0.00 17 Seg. SDS0.00 Stress Defect Extent (% LAD)0.00Rest Defect Extent (% LAD)0.00Rev. Defect Extent (% LAD)0.00 Stress Defect Extent (% LCX) 0.00Rest Defect Extent (% LCX)0.00Rev. Defect Extent (% LCX)0.00 Stress Defect Extent (% RCA)0.00Rest Defect Extent (% RCA)0.00Rev. Defect Extent (% RCA)0.00 Stress Defect Extent (% RICKY)0.00Rest Defect Extent (% RICKY)0.00Rev. Defect Extent (% RICKY)0.00 Conclusion 1. Regadenoson cardioisotope stress test did not show any evidence of ischemia or infarct. 2. Normal left ventricular systolic function with ejection fraction calculated at 83%. 3. Low risk for cardiac events. Signed by : Leila Lopes, Electronically Approved : 06/11/2021 16:19:37
--- NOTE | 2021-06-11 16:58 | CARD ---
MR#: [id number] Date of Study: 06/11/2021 Ordering Physician: LEILA VARGAS, Referring Physician: LEILA VARGAS, Tech: Antonella Busch [facility] APPROVED REPORT EXAM: Two-dimensional and M-mode echocardiogram with Doppler and color Doppler. Other Information Quality : AverageHR: 51bpm INDICATION Pre-Op RISK FACTORS Hypertension Hyperlipidemia Diabetes 2D DIMENSIONS RVDd2.8 (2.9-3.5cm)Left Atrium(2D)3.2 (1.6-4.0cm) IVSd1.0 (0.7-1.1cm)Aortic Root(2D)2.8 (2.0-3.7cm) LVDd4.7 (3.9-5.9cm)LVOT Diameter2.0 (1.8-2.4cm) PWd1.1 (0.7-1.1cm)LVDs3.3 (2.5-4.0cm) FS (%) 28.8 %SV55.7 ml LVEF(%)55.4 (>50%) Aortic Valve AoV Peak Wu.127.2cm/sAoV VTI29.7cm AO Peak GR.6.5mmHgLVOT Peak Wu.129.3cm/s LVOT VTI 33.44cmAO Mean GR.3mmHg SOLA (VMAX)2.98rf0IQP (VTI)3.68cm2 Mitral Valve MV E Jmsgibgb83.0cm/sMV DECEL NQFM394mm MV A Ilmrwpqn04.8cm/sMV EJI08na E/A Ratio0.9MVA (PHT)3.59cm2 TDI E/Medial E'7.2 Pulmonary Valve PV Peak Pvtakemp71.9cm/sPV Peak Grad.3mmHg Tricuspid Valve TR P. Gudepjnk389vx/sRAP NYWVTTZC0lvJt TR Peak Gr.09rqRhNQBN54heLd Pulmonary Vein S1 Madzaroy59.3cm/sD2 Uridogra71.6cm/s PVa egecocgu402xlqv LEFT VENTRICLE The left ventricle is normal size. There is normal left ventricular wall thickness. The left ventricu lar systolic function is normal. The Ejection Fraction is 55-60%. There is normal LV segmental wall m otion. The left ventricular diastolic function and filling is normal for age. RIGHT VENTRICLE The right ventricle is normal size. There is normal right ventricular wall thickness. The right ventr icular systolic function is normal. ATRIA The left atrium size is normal. The right atrium size is normal. The interatrial septum is intact wit h no evidence for an atrial septal defect or patent foramen ovale as noted on 2-D or Doppler imaging. AORTIC VALVE The aortic valve is normal in structure and function. Doppler and Color Flow revealed trace aortic re gurgitation. There is no significant aortic valvular stenosis. Calculated aortic valve area is 3.41 c m2 with maximum pressure gradient of 7 mmHg and mean pressure gradient of 4 mmHg. MITRAL VALVE The mitral valve is normal in structure and function. There is no evidence of mitral valve prolapse. There is no mitral valve stenosis. Doppler and Color-flow revealed trace mitral regurgitation. TRICUSPID VALVE The tricuspid valve is normal in structure and function. Doppler and Color Flow revealed trace tricus pid regurgitation with an estimated PAP of 29 mmHg. There is no tricuspid valve stenosis. PULMONIC VALVE The pulmonic valve is not well visualized. Doppler and Color Flow revealed trace pulmonic valvular re gurgitation. GREAT VESSELS The aortic root is normal in size. The IVC is normal in size and collapses >50% with inspiration. PERICARDIAL EFFUSION There is no evidence of significant pericardial effusion. Critical Notification Critical Value: No <Conclusion> The left ventricular systolic function is normal. The Ejection Fraction is 55-60%. There is normal LV segmental wall motion. Trace mitral regurgitation. Trace tricuspid regurgitation with an estimated PAP of 29 mmHg. There is no evidence of significant pericardial effusion. Signed by : Leila Vargas, Electronically Approved : 06/11/2021 16:57:40
== END ==
LOC: ECHO 08:13
PROVIDERS: ATTEND Internal Medicine Cardiovascular Disease
DX: Z01.810 Encounter for preprocedural cardiovascular examination (principal)
CPT/HCPCS: 78452; 93017; 93306; A9500; J2785

== ENCOUNTER → 2021-07-13 | Outpatient (CLI) | payer MEDICARE ==
[~2021-07-13] MED LIST changes: +APIX2.5T PO; +HYDR2TAB31 PO; +POLY17PO52 PO; -REGADENOSON 0.4 MG/5 ML DISP.SYRIN. IV ONE
[2021-07-13 11:17] LABS: BASO % 1 % (0-3); EOS # 0.2 x10^3/uL (0.0-0.7); EOS % 2 % (0-3); HEMOGLOBIN 12.7 g/dL (12.0-15.5); LYMPH # 1.3 x10^3/uL (1.0-4.8); LYMPH % 16 % (24-48); MEAN CORPUSCULAR HEMOGLOBIN 28 pg (25-35); MEAN CORPUSCULAR HGB CONC 33 g/dL (31-37); MEAN CORPUSCULAR VOLUME 87 fL (79-100); MONO # 0.5 x10^3/uL (0.0-1.1); MONO % 6 % (0-9); NEUT # 5.9 x10^3/uL (1.8-7.7); NEUT % 75 % (31-73); PLATELET COUNT 203 x10^3/uL (140-400); RED BLOOD COUNT 4.47 x10^6/uL (3.50-5.40); RED CELL DISTRIBUTION WIDTH 13.2 % (11.5-14.5); WHITE BLOOD COUNT 7.8 x10^3/uL (4.0-11.0)
[2021-07-13 11:21] LABS: ALBUMIN 3.5 g/dL (3.4-5.0); CALCIUM 8.8 mg/dL (8.5-10.1); CREATININE 1.6 mg/dL (0.6-1.0); GFR 38.7; POTASSIUM 4.8 mmol/L (3.5-5.1)
[2021-07-13 11:36] LABS: PROTHROMBIN TIME PATIENT 12.5 SEC (11.7-14.0)
[2021-07-14 01:10] LABS: HEMOGLOBIN A1C 6.1 % (4.8-5.6)
== END ==
LOC: SURGPAT 09:50
PROVIDERS: ATTEND Orthopaedic Surgery
DX: Z01.812 Encounter for preprocedural laboratory examination (principal); M17.12 Unilateral primary osteoarthritis, left knee
CPT/HCPCS: 36415; 80048; 82040; 82306; 83036; 85025; 85610; 85651; 85730; 87641

== ENCOUNTER → 2022-01-20 | Outpatient (CLI) | payer MEDICARE ==
[2021-07-30 08:32] VITALS: BP 146/58
--- NOTE | 2022-01-20 12:56 | RAD ---
Bilateral digital screening 2-D and 3-D (tomosynthesis) mammogram: Reason for examination: Routine screening. Comparison is made to previous mammograms from 12/26/2018, 01/02/2020, and 01/07/2021. Bilateral mammograms in CC and oblique projections were obtained with 2-D imaging and 3-D tomosynthes is imaging and reviewed on the workstation. Interpretation was made with the benefit of CAD. Findings: Breast density: Category C. The breasts are heterogeneously dense, which may obscure small masses. There are no suspicious masses, malignant appearing calcifications or architectural distortion. Previ ously noted small cyst in the anterior lateral left breast are not seen. Impression: No evidence of malignancy. ASSESSMENT: BI-RADS 1. Negative. Recommendations: Routine screening mammograms. This patient's information has been entered into a reminder system for the patient to be notified wit h the results of her examination and a target date for the next mammogram. Your patient's mammogram demonstrates that she has dense breast tissue (breast density category C or D), which could hide abnormalities, and if she has other risk factors for breast cancer that have bee n identified, she might benefit from supplemental screening tests that may be suggested by you as her ordering physician. Dense breast tissue, in and of itself, is a relatively common condition. Therefo re, this information is not provided to cause undue concern, but rather to raise your awareness and t o promote discussion with your patient regarding the presence of other risk factors, in addition to d ense breast tissue. Electronically signed by: Evelyn Borrego MD (01/20/2022 12:54 PM) [id number]
== END ==
LOC: MAMMO 07:53
PROVIDERS: ATTEND Family Medicine
DX: Z12.31 Encounter for screening mammogram for malignant neoplasm of breast (principal)
CPT/HCPCS: 77063; 77067